=== PATIENT | male | born 1975 | race African-American/Black ===

== ENCOUNTER 2019-09-24 15:40 | Emergency (ER) | payer MEDICARE, SELFPAY ==
[2019-09-24 15:54] VITALS: BP 179/95; PULSE 93; RESP 20; TEMP 36.9; O2SAT 98
--- NOTE | 2019-09-24 17:19 | ED.GENADULT ---
HPI - General Adult General Chief complaint: Dental/Oral <Neal Barajas PA-C - Last Filed: 09/24/19 17:24> Stated complaint: toothache <Neal Barajas PA-C - Last Filed: 09/24/19 17:24> Time Seen by Provider: 09/24/19 16:48 <Neal Barajas PA-C - Last Filed: 09/24/19 17:24> Source: patient <Neal Barajas PA-C - Last Filed: 09/24/19 17:24> Mode of arrival: ambulatory <NIRMAL Burton Last Filed: 09/24/19 17:24> Limitations: no limitations <Neal Barajas PA-C - Last Filed: 09/24/19 17:24> History of Present Illness HPI narrative: Patient is a 44-year-old male who presents to emergency department for evaluation of dental pain to the left lower posterior molar that has been present now for the last 2 days with history of decay denies any URI symptoms fever chills nausea vomiting or other complaints. <Neal Barajas PA-C - Last Filed: 09/24/19 17:24> Related Data Allergies/adverse reactions: Allergies Allergy/AdvReac Type Severity Reaction Status Date / Time No Known Allergies Allergy Verified 09/24/19 15:41 <Neal Barajas PA-C - Last Filed: 09/24/19 17:24> Review of Systems Review of Systems: All systems reviewed & are unremarkable except as noted in HPI and below <Neal Barajas PA-C - Last Filed: 09/24/19 17:24> [facility] Social History Social History: Social History (Updated 09/24/19 @ 17:21 by Neal Barajas PA-C) Smoking status: Never smoker <Neal Barajas PA-C - Last Filed: 09/24/19 17:24> Exam Narrative: Exam Narrative: GENERAL: Well-appearing, well-nourished, and in no acute distress. HEAD: Normocephalic, atraumatic. EYES: PERRLA and EOMI. ENT: Nares clear, no rhinorrhea or epistaxis. Mucous membranes moist. Oropharynx without tonsillar hypertrophy exudate or other lesions. Patient with decay to the left lower posterior molar without any facial swelling or swelling of the gums CHEST: Clear to auscultation. No respiratory distress. No wheezes rales or rhonchi HEART: Regular rate and rhythm. No murmur heard. EXTREMITIES: Normal range of motion. No edema. SKIN: Warm, dry, no rash. NEURO: No focal deficits. Alert and oriented x3. Cranial nerves II through XII grossly intact PSYCH: Normal mood and affect. <Neal Barajas PA-C - Last Filed: 09/24/19 17:24> Course Course Emergency Course: Patient in the room in no distress aware of case findings treatment plan and diagnosis agreeing to follow-up as directed or to return if symptoms worsen or concern <Neal Barajas PA-C - Last Filed: 09/24/19 17:24> Vital Signs Vital signs: Vital Signs Temperature 98.4 F 09/24/19 15:54 Pulse Rate 93 09/24/19 15:54 Respiratory Rate 20 09/24/19 15:54 Blood Pressure 179/95 H 09/24/19 15:54 Pulse Oximetry 98 09/24/19 15:54 Temperature 98.4 F 09/24/19 15:54 Pulse Rate 93 09/24/19 15:54 Respiratory Rate 20 09/24/19 15:54 Blood Pressure 179/95 H 09/24/19 15:54 Pulse Oximetry 98 09/24/19 15:54 <Neal Barajas PA-C - Last Filed: 09/24/19 17:24> Vital Signs Temperature 98.4 F 09/24/19 15:54 Pulse Rate 93 09/24/19 15:54 Respiratory Rate 20 09/24/19 15:54 Blood Pressure 179/95 H 09/24/19 15:54 Pulse Oximetry 98 09/24/19 15:54 Temperature 98.4 F 09/24/19 15:54 Pulse Rate 93 09/24/19 15:54 Respiratory Rate 20 09/24/19 15:54 Blood Pressure 179/95 H 09/24/19 15:54 Pulse Oximetry 98 09/24/19 15:54 <Sivan Jefferson MD - Last Filed: 09/24/19 19:51> Medical Decision Making MDM Narrative Medical decision making narrative: Paitents pain and complaint coupled with physical findings are consistant with dentalgia. There are no focal signs of space occupying lesions that are compromising to the ariway. The floor of the mouth is soft with no signs of Ludwigs Angina. Patient is without trismus or drooling and able to swallow secreations
== END 2019-09-24 17:40 | disposition home or self-care (01) ==
PROVIDERS: Emergency Provider General Practice
DX: K08.89 Other specified disorders of teeth and supporting structures (principal)
CPT/HCPCS: 99283